=== PATIENT | female | born 1940 | race African-American/Black ===

== ENCOUNTER 2018-12-23 05:59 | Inpatient (IN) ==
[2018-12-23] MEDS ORDERED: ONDANSETRON 4 MG/2 ML VIAL IV STA (06:22)
[2018-12-23 06:41] LABS: Basophils % 0.5 % (0.0-0.8); Eosinophils % 0.1 % (0.00-10.9); Hematocrit 40.9 VOL% (35.7-47.0); Hemoglobin 12.9 GM/DL (12.0-16.0); Immature Granulocytes % 0.6 %; Immature Granulocytes Absolute 0.05 #; Lymphocytes # 0.8 10*3/uL (1.4-4.0); Lymphocytes % 9.6 % (21.3-54.2); Mean Corpuscular HGB Conc 31.5 GM/DL (32-36); Mean Corpuscular Volume 82.1 FL (87-102); Mean Platelet Volume 9.6 FL (9.6-12.0); Monocytes % 4.5 % (1.7-12.7); Neutrophils % 84.7 % (38.7-73.9); Platelet Count 251 T/CUMM (130-400); Red Blood Count 4.98 MC/CUMM (3.8-5.5); Red Cell Distribution Width 13.6 % (9.3-17.3); White Blood Count 8.8 T/CUMM (4-12)
[2018-12-23 06:48] LABS: Apearance,Urine CLEAR (Clear); Bilirubin,Urine Negative (Negative); Blood, Urine Small mg/dL (Negative); Glucose,Urine (UA) Negative (Negative); Ketones,Urine Negative (Negative); Mucus,Urine Occasional /LPF (Occasional); Nitrite,Urine Negative (Negative); Protein,Urine Negative; RBC,Urine 1 /HPF (0-4); Urine Color Amber (Yellow); Urine Specific Gravity 1.011 (1.001-1.035)
[2018-12-23 07:31] LABS: Albumin 3.7 G/DL (3.4-5.0); Bilirubin,Total 1.2 MG/DL (0.2-1.0); Calcium 9.3 MG/DL (8.5-10.1); Osmolality,Calculated 275.5 MOS/KG (273-304); Total Protein 7.9 G/DL (6.4-8.3)
[2018-12-23] MEDS ORDERED: MORPHINE 4 MG/1 ML VIAL IV PRN (09:50)
[2018-12-23] MEDS ORDERED: ONDANSETRON 4 MG/2 ML VIAL IV PRN (09:50)
[2018-12-23] MEDS ORDERED: hydrALAZINE 20 MG/1 ML VIAL IV PRN (09:53)
[2018-12-23] MEDS ORDERED: MAGNESIUM SULF RIDER 2 GM in PREMIX 1 EACH IV PRN (09:54)
[2018-12-23] MEDS ORDERED: PROMETHAZINE 25 MG/1 ML VIAL IM PRN (09:54)
[2018-12-23] MEDS ORDERED: MAGNESIUM SULF RIDER 4 GM in PREMIX 1 EACH IV PRN (09:54)
[2018-12-23] MEDS ORDERED: ALBUTEROL/IPRATROPIUM 3 ML NEB RESP TX PRN (10:00)
[2018-12-23] MEDS ORDERED: HEPARIN 5,000 UNIT/1 ML VIAL SUBCUT SCH (10:30)
[2018-12-23] MEDS: LACTATED RINGERS 1,000 ML IV SCH ×3 (11:41→23:20)
[2018-12-23] MEDS: PIPERACILLIN/TAZOBACTAM 3,375 MG in SODIUM CHLORIDE 0.9% 100 ML IV SCH ×2 (12:02→17:28)
[2018-12-23] MEDS: MORPHINE 4 MG/1 ML VIAL IV PRN (14:27)
[2018-12-24] MEDS: PIPERACILLIN/TAZOBACTAM 3,375 MG in SODIUM CHLORIDE 0.9% 100 ML IV SCH ×3 (01:43→18:40)
[2018-12-24 04:42] LABS: Basophils % 0.4 % (0.0-0.8); Eosinophils # 0.2 10*3/uL (0.0-0.87); Eosinophils % 3.9 % (0.00-10.9); Hematocrit 35.3 VOL% (35.7-47.0); Hemoglobin 11.3 GM/DL (12.0-16.0); Immature Granulocytes % 0.4 %; Immature Granulocytes Absolute 0.02 #; Lymphocytes # 1.1 10*3/uL (1.4-4.0); Lymphocytes % 22.4 % (21.3-54.2); Mean Corpuscular Volume 82.5 FL (87-102); Mean Platelet Volume 9.7 FL (9.6-12.0); Monocytes % 9.4 % (1.7-12.7); Neutrophils % 63.5 % (38.7-73.9); Platelet Count 244 T/CUMM (130-400); Red Blood Count 4.28 MC/CUMM (3.8-5.5); Red Cell Distribution Width 13.9 % (9.3-17.3); White Blood Count 4.9 T/CUMM (4-12)
[2018-12-24 04:57] LABS: INR 1.1; PT Patient Result 11.4 SECS
[2018-12-24 05:24] LABS: Albumin 2.9 G/DL (3.4-5.0); Bilirubin,Total 5.4 MG/DL (0.2-1.0); Calcium 8.9 MG/DL (8.5-10.1); Osmolality,Calculated 279.3 MOS/KG (273-304); Risk Ratio 2.46; Thyroid Stimulating Hormone 1.17 uIU/ml (0.358-3.74); Total Protein 6.5 G/DL (6.4-8.3); VLDL CHOLESTEROL 13.8 MG/DL
[2018-12-24] MEDS: LACTATED RINGERS 1,000 ML IV SCH ×3 (06:17→19:20)
[2018-12-24] MEDS ORDERED: ROCURONIUM 100 MG/10 ML VIAL IV ONE (09:00)
[2018-12-24] MEDS ORDERED: PHENYLEPHRINE 1 MG/10 ML SYRINGE IV ONE (09:00)
[2018-12-24] MEDS ORDERED: LIDOCAINE 100 MG/5 ML SYRINGE ONE (09:00)
[2018-12-24] MEDS ORDERED: SUCCINYLCHOLINE 200 MG/10 ML VIAL ONE (09:00)
[2018-12-24] MEDS ORDERED: GLYCOPYRROLATE 0.4 MG/2 ML VIAL ONE (09:00)
[2018-12-24] MEDS ORDERED: ONDANSETRON 4 MG/2 ML VIAL ONE (09:00)
[2018-12-24] MEDS ORDERED: PROPOFOL 200 MG/20 ML VIAL IV ONE (09:00)
[2018-12-24] MEDS ORDERED: fentaNYL 100 MCG/2 ML VIAL ONE (10:19)
[2018-12-24] MEDS ORDERED: INDOMETHACIN SUPP 50 MG SUPP RECTAL ONE (10:45)
[2018-12-24] MEDS: PHENOL 1.4% THROAT SPRAY 177 ML BOTTLE PO PRN ×2 (17:15→21:27)
[2018-12-24] MEDS ORDERED: ALUMINUM/MAGNES/SIMETH MAX STR 30 ML UDCUP PO PRN (22:14)
[2018-12-24] MEDS: FAMOTIDINE 20 MG/2 ML VIAL IV SCH (22:30)
[2018-12-25] MEDS: PIPERACILLIN/TAZOBACTAM 3,375 MG in SODIUM CHLORIDE 0.9% 100 ML IV SCH ×3 (01:59→22:50)
[2018-12-25] MEDS: LACTATED RINGERS 1,000 ML IV SCH ×2 (02:00→06:14)
[2018-12-25 04:58] LABS: Basophils % 0.6 % (0.0-0.8); Eosinophils # 0.3 10*3/uL (0.0-0.87); Eosinophils % 4.9 % (0.00-10.9); Hematocrit 33.2 VOL% (35.7-47.0); Hemoglobin 10.8 GM/DL (12.0-16.0); Immature Granulocytes % 0.4 %; Immature Granulocytes Absolute 0.02 #; Lymphocytes # 1.2 10*3/uL (1.4-4.0); Lymphocytes % 22.2 % (21.3-54.2); Mean Corpuscular HGB Conc 32.5 GM/DL (32-36); Mean Corpuscular Volume 81.4 FL (87-102); Mean Platelet Volume 9.5 FL (9.6-12.0); Monocytes % 6.8 % (1.7-12.7); Neutrophils % 65.1 % (38.7-73.9); Platelet Count 239 T/CUMM (130-400); Red Blood Count 4.08 MC/CUMM (3.8-5.5); Red Cell Distribution Width 13.6 % (9.3-17.3); White Blood Count 5.3 T/CUMM (4-12)
[2018-12-25 05:35] LABS: Albumin 2.7 G/DL (3.4-5.0); Bilirubin,Total 2.3 MG/DL (0.2-1.0); Calcium 8.6 MG/DL (8.5-10.1); Osmolality,Calculated 286.7 MOS/KG (273-304)
[2018-12-25] MEDS: POTASSIUM CHLORIDE RIDER 10 MEQ in PREMIX 1 EACH IV PRN ×3 (06:18→20:53)
[2018-12-25] MEDS ORDERED: DIAZEPAM 5 MG TABLET PO ONE (07:17)
[2018-12-25] MEDS: PHENOL 1.4% THROAT SPRAY 177 ML BOTTLE PO PRN (07:54)
[2018-12-25] MEDS ORDERED: LIDOCAINE 1%/EPI INJ 20 ML VIAL ONE (08:51)
[2018-12-25] MEDS ORDERED: TISSUE ADHESIVE 1 EACH APPLICATOR TOP ONE (08:51)
[2018-12-25] MEDS ORDERED: BUPIVACAINE MPF 0.25% /EPI 30 ML VIAL ONE (08:51)
[2018-12-25] MEDS ORDERED: ROCURONIUM 100 MG/10 ML VIAL IV ONE (11:20)
[2018-12-25] MEDS ORDERED: NEOSTIGMINE 10 MG/10 ML VIAL ONE (11:20)
[2018-12-25] MEDS ORDERED: fentaNYL 100 MCG/2 ML VIAL ONE (11:20)
[2018-12-25] MEDS ORDERED: GLYCOPYRROLATE 0.4 MG/2 ML VIAL ONE (11:20)
[2018-12-25] MEDS ORDERED: ONDANSETRON 4 MG/2 ML VIAL ONE (11:20)
[2018-12-25] MEDS ORDERED: DEXAMETHASONE 4 MG/1 ML VIAL ONE (11:20)
[2018-12-25] MEDS ORDERED: PHENYLEPHRINE 1 MG/10 ML SYRINGE IV ONE (11:20)
[2018-12-25] MEDS ORDERED: SEVOFLURANE 1 UNIT/15 MINUTE INH ONE (11:20)
[2018-12-25] MEDS ORDERED: PROPOFOL 200 MG/20 ML VIAL IV ONE (11:20)
[2018-12-25] MEDS ORDERED: HYDROmorphone 2 MG/1 ML VIAL IV PRN (11:22)
[2018-12-25] MEDS ORDERED: ONDANSETRON 4 MG/2 ML VIAL IV PRN (11:22)
[2018-12-25] MEDS: FAMOTIDINE 20 MG/2 ML VIAL IV SCH (14:17)
[2018-12-26] MEDS: MORPHINE 4 MG/1 ML VIAL IV PRN (00:52)
[2018-12-26] MEDS: FAMOTIDINE 20 MG/2 ML VIAL IV SCH (02:45)
[2018-12-26] MEDS: LACTATED RINGERS 1,000 ML IV SCH (02:59)
[2018-12-26] MEDS: POTASSIUM CHLORIDE RIDER 10 MEQ in PREMIX 1 EACH IV PRN (03:00)
[2018-12-26] MEDS: PIPERACILLIN/TAZOBACTAM 3,375 MG in SODIUM CHLORIDE 0.9% 100 ML IV SCH (05:29)
[2018-12-26 08:09] VITALS: BP 163/71
[2018-12-26] MEDS: PHENOL 1.4% THROAT SPRAY 177 ML BOTTLE PO PRN (10:50)
== END 2018-12-26 13:07 | disposition home health service (06) | DRG 418 ==
LOC: EDBD → EDUNIT# → N.ED 05:59 → N.EDINP 10:29 → N.3E 11:21
PROVIDERS: ADMIT Hospitalist; ATTEND Hospitalist
PROC: ERCPWSP (ICD-10-PCS; 2018-12-24 09:35)
PROC: LAPCHOL (2018-12-25 09:43)